=== PATIENT | female | born 1995 | race Caucasian/White ===

== ENCOUNTER 2018-03-08 10:32 | Outpatient (CLI) | payer OTHER | END 2018-03-08 10:35 | disposition home or self-care (01) | LOC: SONOGRAMA 10:32 | DX: E04.2 Nontoxic multinodular goiter (principal); E06.3 Autoimmune thyroiditis ==

== ENCOUNTER 2018-08-21 10:12 | Outpatient (CLI) | payer OTHER | END 2018-08-21 10:24 | disposition home or self-care (01) | LOC: SONOGRAMA 10:12 → MAMO-SONO 10:15 → SONOGRAMA 10:24 | DX: R10.2 Pelvic and perineal pain (principal) ==

== ENCOUNTER 2019-01-13 10:52 | Outpatient (CLI) | payer OTHER | END 2019-01-13 11:13 | disposition home or self-care (01) | LOC: LAB 10:52 | DX: R06.09 Other forms of dyspnea (principal); J11.1 Influenza due to unidentified influenza virus with other respiratory manifestations; E03.8 Other specified hypothyroidism ==

== ENCOUNTER 2021-05-03 14:02 | Emergency (ER) | payer OTHER ==
[~2021-05-03] VITALS: Ht 177.8 cm; Wt 85.3 kg
[2021-05-03] MEDS ORDERED: SYNTHROID88 MCG PO (14:11)
== END 2021-05-03 18:07 | disposition home or self-care (01) ==
LOC: ER 14:02
DX: R55 Syncope and collapse (principal); Z88.0 Allergy status to penicillin; Z88.1 Allergy status to other antibiotic agents; E03.9 Hypothyroidism, unspecified

== ENCOUNTER 2021-08-21 12:05 | Emergency (ER) | payer OTHER ==
[~2021-08-21] VITALS: Ht 177.8 cm; Wt 77.1 kg
[~2021-08-21 12:05] MED LIST: SYNTHROID88 MCG PO
[2021-08-21] MEDS ORDERED: ZOFRAN8 MG PO (21:08)
== END 2021-08-21 21:37 | disposition home or self-care (01) ==
LOC: ER 12:05
DX: R11.10 Vomiting, unspecified (principal); Z88.0 Allergy status to penicillin

== ENCOUNTER 2022-07-28 14:27 | Emergency (ER) | payer OTHER ==
[~2022-07-28] VITALS: Ht 177.8 cm; Wt 78.9 kg
[~2022-07-28 14:27] MED LIST changes: +ZOFRAN8 MG PO
== END 2022-07-28 20:22 | disposition home or self-care (01) ==
LOC: ER 14:27
DX: S70.311A Abrasion, right thigh, initial encounter (principal); X58.XXXA Exposure to other specified factors, initial encounter; Y93.66 Activity, soccer; Y92.322 Soccer field as the place of occurrence of the external cause; Z88.0 Allergy status to penicillin; L03.115 Cellulitis of right lower limb

== ENCOUNTER 2023-04-07 13:42 | Outpatient (CLI) | payer OTHER | END 2023-04-07 13:52 | disposition home or self-care (01) | LOC: SONOGRAMA 13:42 | DX: G04.2 Bacterial meningoencephalitis and meningomyelitis, not elsewhere classified (principal) ==

== ENCOUNTER 2025-02-02 13:42 | Outpatient (CLI) | payer OTHER | END 2025-02-02 13:48 | disposition home or self-care (01) | LOC: SONOGRAMA 13:42 | PROVIDERS: ATTEND Internal Medicine Endocrinology, Diabetes & Metabolism | DX: E04.8 Other specified nontoxic goiter (principal) ==